=== PATIENT | female | born 1990 | race Caucasian/White ===

== ENCOUNTER 2020-03-25 16:20 | Inpatient (IN) | payer OTHER ==
[2020-03-25] MEDS ORDERED: ELECTROLYTE-148 SOLN 1,000 ML IV ONE (17:15)
[2020-03-25] MEDS ORDERED: ELECTROLYTE-148 SOLN 1,000 ML IV SCH (17:45)
[2020-03-25] MEDS ORDERED: CITRIC ACID/SODIUM CITRATE 30 ML UNIT-DOSE CUP PO ONE ×2 (18:45→19:31)
[2020-03-25 18:51] LABS: BASO % 0.1 % (0-2.0); EOS % 0.4 % (0-4.5); HEMOGLOBIN 12.8 GM/dL (10.7-15.3); LYMPH % 16.5 % (8-40); MCH 31.7 pg (25.7-33.7); MCHC 33.6 g/dl (32.0-36.0); MEAN CELL VOLUME 94.2 fl (80-96); MEAN PLT VOLUME 9.7 fl (7.5-11.1); MONO % 5.9 % (3.8-10.2); NEUT % 77.1 % (42.8-82.8); PLATELET COUNT 244 K/MM3 (134-434); RBC 4.04 M/mm3 (3.60-5.2); RDW 13.3 % (11.6-15.6); WHITE BLOOD COUNT 13.1 K/mm3 (4.0-10.0)
[2020-03-25 18:58] LABS: INR 0.93 (0.83-1.09)
[2020-03-25 19:01] LABS: ACTIVATED PTT 20.9 SECONDS (25.2-36.5)
[2020-03-25 19:16] LABS: BLOOD UREA NITROGEN 9.7 mg/dL (7-18); CREATININE 0.6 mg/dL (0.55-1.3); POTASSIUM 3.9 mmol/L (3.5-5.1)
[2020-03-25] MEDS ORDERED: ELECTROLYTE-148 SOLN 500 ML IV ONE (19:31)
--- NOTE | 2020-03-25 19:38 | HP ---
Past Medical History - Admission Chief Complaint: Contractions pain History of Present Illness: 30 yo with previous , @ 38 weeks gestation, EDC 04/06/20, admitted for repeat . Upon admission she was 1cm dilated History Source: Patient Limitations to Obtaining History: No Limitations - Past Medical History ...: 2 ...Para: 1 ...EDC by Sono: 04/06/20 - Past Surgical History Past Surgical History: Yes: Hx Myomectomy: No Hx Transabdominal Cerclage: No - Smoking History Have you smoked in the past 12 months: No - Alcohol/Substance Use Hx Alcohol Use: No History of Substance Use: reports: None - Social History Usual Living Arrangement: Yes: With Significant Other History of Recent Travel: No Home Medications - Allergies Allergies/Adverse Reactions: Allergies Allergy/AdvReac Type Severity Reaction Status Date / Time No Known Allergies Allergy Verified 03/25/20 17:46 - Home Medications Home Medications: Ambulatory Orders Iron 1 tab PO BID 02/26/20 Vitamins (Sjr) - 1 tab PO DAILY 02/26/20 Family Medical History Family History: Unremarkable Review of Systems - Review of Systems Constitutional: reports: No Symptoms HENT: reports: No Symptoms Neck: reports: No Symptoms Cardiovascular: reports: No Symptoms Respiratory: reports: No Symptoms Gastrointestinal: reports: No Symptoms Genitourinary: reports: Pain Breasts: reports: No Symptoms Reported Musculoskeletal: reports: No Symptoms Neurological: reports: No Symptoms Psychiatric: reports: No Symptoms Pain Intensity: 6 Physical Exam - Maternity Vital Signs: Vital Signs Temperature 98.2 F 03/25/20 18:00 Pulse Rate 79 03/25/20 18:00 Respiratory Rate 03/25/20 18:00 Blood Pressure 108/66 03/25/20 18:00 O2 Sat by Pulse Oximetry (%) Constitutional: Yes: Well Nourished Eyes: Yes: Conjunctiva Clear HENT: Yes: Atraumatic Neck: Yes: Supple Cardiovascular: Yes: Regular Rate and Rhythm Breast(s): Yes: WNL - Abdominal Exam/OB Number of Fetuses: Single Presentation: Vertex Intensity: Mild/Mod Monitor Mode: External Accelerations: Uniform Decelerations: None - Vaginal Exam/OB Vaginal Bleeding: No Dilatation (cm): 1 Effacement (%): 60 Amniotic Membrane Status: Intact Presentation: Vertex/Position Station: -2 - Physical Exam Musculoskeletal: Yes: WNL ...Motor Strength: WNL Psychiatric: Yes: Alert, Oriented - Labs Lab Results: CBC, BMP 03/25/20 17:15 03/25/20 17:15 Problem List - Problems (1) 38 weeks gestation of Problems reviewed: Yes Code(s): Z3A.38 - 38 WEEKS GESTATION OF Assessment/Plan 38 weeks gestation in labor Pre op for repeat Consent signed Anesthesia to see patient
[2020-03-25] MEDS ORDERED: morphine SULFATE/PF 0.5 MG/ML (2cc Syringe - QUVA) ONE (20:07)
[2020-03-25] MEDS ORDERED: MIDAZOLAM HCL 2 MG/2 ML SINGLE DOSE VIAL ONE ×2 (21:28→21:45)
[2020-03-25] MEDS ORDERED: ONDANSETRON 4 MG/2 ML VIAL IVPUSH PRN (22:13)
[2020-03-25] MEDS ORDERED: OXYTOCIN 20 UNITS in 0.9% NS 20 UNIT/1,000 ML INFUS.BAG IV ONE (22:33)
[2020-03-25] MEDS: OXYTOCIN 20 UNITS in 0.9% NS 20 UNIT/1,000 ML INFUS.BAG IV SCH (22:45)
[2020-03-25] MEDS ORDERED: IBUPROFEN 800 MG/8 ML IJ IVPB PRN (23:03)
[2020-03-25] MEDS ORDERED: METHYLERGONOVINE MALEATE 0.2 MG/1 ML AMP IM PRN (23:03)
--- NOTE | 2020-03-25 23:07 | OP ---
Operative Note - Note: Operative Date: 03/25/20 Pre-Operative Diagnosis: Previous in labor Operation: Repeat Low Transverse Findings: Baby boy in cephallic position. Multiple adhesions Post-Operative Diagnosis: Same as Pre-op Surgeon: Chela Kramer Garland Maker: Geoffrey Matute Anesthesia: Spinal Specimens Removed: Placenta Estimated Blood Loss (mls): 700
[2020-03-25 23:26] VITALS: BMI 25.8
[2020-03-26] MEDS ORDERED: OXYTOCIN 20 UNITS in 0.9% NS 20 UNIT/1,000 ML INFUS.BAG IV ONE ×2 (02:12→11:52)
[2020-03-26] MEDS: OXYTOCIN 20 UNITS in 0.9% NS 20 UNIT/1,000 ML INFUS.BAG IV SCH ×2 (02:30→12:03)
[2020-03-26 08:47] LABS: BASO % 0.2 % (0-2.0); EOS % 0.4 % (0-4.5); HEMOGLOBIN 11.9 GM/dL (10.7-15.3); LYMPH % 11.1 % (8-40); MCH 31.9 pg (25.7-33.7); MCHC 34.1 g/dl (32.0-36.0); MEAN CELL VOLUME 93.6 fl (80-96); MEAN PLT VOLUME 9.1 fl (7.5-11.1); MONO % 7.7 % (3.8-10.2); NEUT % 80.6 % (42.8-82.8); PLATELET COUNT 207 K/MM3 (134-434); RBC 3.74 M/mm3 (3.60-5.2); RDW 13.3 % (11.6-15.6); WHITE BLOOD COUNT 16.9 K/mm3 (4.0-10.0)
--- NOTE | 2020-03-26 10:55 | PN ---
Progress Note (short form) - Note Progress Note: Anesthesia Post Note: s/p c section under spinal anesthesia post op day one, intrathecal duramorph for post op pain control patient is doing well, pain under control, minimal itching, no nausea or vomiting, no adverse anesthetic complications. dept of anesthesiology will sign off on care at this time
--- NOTE | 2020-03-26 16:00 | PN ---
Post Progress Note - Subjective Subjective: 30 yo Para 2 status post repeat , seen and evaluated, doing well. Post Day: 1 Type of Delivery: Repeat C/S Vital Signs: Vital Signs Temperature 98.1 F 03/26/20 14:00 Pulse Rate 78 03/26/20 14:00 Respiratory Rate 18 03/26/20 14:00 Blood Pressure 109/71 03/26/20 14:00 O2 Sat by Pulse Oximetry (%) 100 03/26/20 10:00 Breast Exam: Yes: Soft Uterus: Yes: Fundus @ umbilicus Incision: Yes: Dressing dry and intact Abdomen/GI: Yes: Abdomen soft, Tolerating PO Lochia: Yes: Rubra Lochia, amount: Small Extremities: Yes: Calves non-tender Activity: Other (She's lying in bed) - Labs Labs: CBC WBC 16.9 K/mm3 (4.0-10.0) H 03/26/20 08:35 RBC 3.74 M/mm3 (3.60-5.2) 03/26/20 08:35 Hgb 11.9 GM/dL (10.7-15.3) 03/26/20 08:35 Hct 35.0 % (32.4-45.2) 03/26/20 08:35 MCV 93.6 fl (80-96) 03/26/20 08:35 MCH 31.9 pg (25.7-33.7) 03/26/20 08:35 MCHC 34.1 g/dl (32.0-36.0) 03/26/20 08:35 RDW 13.3 % (11.6-15.6) 03/26/20 08:35 Plt Count 207 K/MM3 (134-434) 03/26/20 08:35 MPV 9.1 fl (7.5-11.1) 03/26/20 08:35 Absolute Neuts (auto) 13.6 K/mm3 (1.5-8.0) H 03/26/20 08:35 Neutrophils % 80.6 % (42.8-82.8) 03/26/20 08:35 Lymphocytes % 11.1 % (8-40) D 03/26/20 08:35 Monocytes % 7.7 % (3.8-10.2) 03/26/20 08:35 Eosinophils % 0.4 % (0-4.5) 03/26/20 08:35 Basophils % 0.2 % (0-2.0) 03/26/20 08:35 Nucleated RBC % 0 % (0-0) 03/26/20 08:35 Problem List - Problems (1) 38 weeks gestation of Problems reviewed: Yes Code(s): Z3A.38 - 38 WEEKS GESTATION OF (2) Status post repeat low transverse section Problems reviewed: Yes Code(s): Z98.891 - HISTORY OF UTERINE SCAR FROM PREVIOUS SURGERY Assessment/Plan Status post repeat Ambulation Analgesia as needed Continue routine post op care
[2020-03-26] MEDS ORDERED: BISACODYL 10 MG SUPP.RECT RC PRN (23:03)
[2020-03-27] MEDS: oxyCODONE HCL 5 MG TABLET PO PRN ×4 (04:06→23:05)
[2020-03-27] MEDS: IBUPROFEN 600 MG TABLET (FP) PO PRN ×5 (04:07→23:05)
[2020-03-27] MEDS: SIMETHICONE 80 MG TAB.CHEW (FP) PO PRN ×2 (04:10→13:48)
--- NOTE | 2020-03-27 11:57 | PN ---
Post Progress Note - Subjective Subjective: 30 yo Para 2 status post normal vaginal delivery, seen and evaluated. Doing well. Post Day: 2 Type of Delivery: Repeat C/S Vital Signs: Vital Signs Temperature 97.5 F L 03/26/20 23:00 Pulse Rate 74 03/26/20 23:00 Respiratory Rate 20 03/27/20 06:39 Blood Pressure 106/70 03/26/20 23:00 O2 Sat by Pulse Oximetry (%) 98 03/26/20 23:00 Breast Exam: Yes: Soft Uterus: Yes: Fundus Firm Incision: Yes: Dressing dry and intact, Other (Steri strip in place) Lochia: Yes: Rubra Lochia, amount: Small Extremities: Yes: Calves non-tender Activity: Ambulating - Labs Labs: CBC WBC 16.9 K/mm3 (4.0-10.0) H 03/26/20 08:35 RBC 3.74 M/mm3 (3.60-5.2) 03/26/20 08:35 Hgb 11.9 GM/dL (10.7-15.3) 03/26/20 08:35 Hct 35.0 % (32.4-45.2) 03/26/20 08:35 MCV 93.6 fl (80-96) 03/26/20 08:35 MCH 31.9 pg (25.7-33.7) 03/26/20 08:35 MCHC 34.1 g/dl (32.0-36.0) 03/26/20 08:35 RDW 13.3 % (11.6-15.6) 03/26/20 08:35 Plt Count 207 K/MM3 (134-434) 03/26/20 08:35 MPV 9.1 fl (7.5-11.1) 03/26/20 08:35 Absolute Neuts (auto) 13.6 K/mm3 (1.5-8.0) H 03/26/20 08:35 Neutrophils % 80.6 % (42.8-82.8) 03/26/20 08:35 Lymphocytes % 11.1 % (8-40) D 03/26/20 08:35 Monocytes % 7.7 % (3.8-10.2) 03/26/20 08:35 Eosinophils % 0.4 % (0-4.5) 03/26/20 08:35 Basophils % 0.2 % (0-2.0) 03/26/20 08:35 Nucleated RBC % 0 % (0-0) 03/26/20 08:35 Problem List - Problems (1) 38 weeks gestation of Code(s): Z3A.38 - 38 WEEKS GESTATION OF (2) Status post repeat low transverse section Code(s): Z98.891 - HISTORY OF UTERINE SCAR FROM PREVIOUS SURGERY Assessment/Plan Status post repeat Ambulation Analgesia as needed Continue routine post op care
[2020-03-28 08:51] LABS: BASO % 0.2 % (0-2.0); HEMATOCRIT 35.8 % (32.4-45.2); HEMOGLOBIN 12.4 GM/dL (10.7-15.3); LYMPH % 23.1 % (8-40); MCH 32.4 pg (25.7-33.7); MCHC 34.5 g/dl (32.0-36.0); MEAN CELL VOLUME 93.8 fl (80-96); MONO % 6.9 % (3.8-10.2); NEUT % 65.8 % (42.8-82.8); PLATELET COUNT 251 K/MM3 (134-434); RBC 3.82 M/mm3 (3.60-5.2); RDW 13.2 % (11.6-15.6); WHITE BLOOD COUNT 9.8 K/mm3 (4.0-10.0)
--- NOTE | 2020-03-28 09:39 | DS ---
Physical Exam-INFRASTRUCTURE ADMINISTRATOR Vital Signs: Vital Signs Temperature 97.9 F 03/27/20 21:00 Pulse Rate 75 03/27/20 21:00 Respiratory Rate 20 03/27/20 21:00 Blood Pressure 109/63 03/27/20 21:00 O2 Sat by Pulse Oximetry (%) 97 03/27/20 21:00 Constitutional: Yes: No Distress Eyes: Yes: Conjunctiva Clear HENT: Yes: Atraumatic Neck: Yes: Supple Cardiovascular: Yes: Regular Rate and Rhythm Respiratory: Yes: Regular Gastrointestinal: Yes: Normal Bowel Sounds ...Rectal Exam: Yes: WNL Pelvis: Yes: WNL External Genitalia: Yes: Normal Vaginal Exam: Yes: Normal Cervix: Yes: Normal Uterus: Yes: Firm Wound/Incision: Yes: Well Approximated, Steri Strips (in place) Neurological: Yes: Alert, Oriented ...Motor Strength: WNL Psychiatric: Yes: Alert, Oriented Labs: CBC, BMP 03/28/20 08:28 03/25/20 17:15 Delivery - Delivery Type of Anesthesia: Spinal Episiotomy/Laceration: None EBL (cc): 700 Delivery, Single - Stages of Labor Date 1st Stage Initiatied: 03/25/20 Time 1st Stage Initiated: 15:00 Date of Delivery: 03/25/20 Time of Delivery: 21:26 Time Placenta Delivered: 21:27 - Condition of Infant Coding Support Specialist/Screenplay Writer Present: Yes Name: Chelly Jacinto Infant Gender: Male Weight: 7 lb 5 oz Total Hours ROM (Hrs/Mins): 7mins - 1 Minute Total Score: 9 5 Minutes Total Score: 9 - Bassett Feeding Plan Initial Plan: Elected not to breastfeed exclusively throughout hospitalization Discharge Summary Problems reviewed: Yes Reason For Visit: ADMIT Current Active Problems 38 weeks gestation of (Acute) Status post repeat low transverse section (Acute) Procedures: Principal: Repeat Low Transverse Hospital Course: Routine post op care Health Concerns: None Plan of Treatment: Ambulation Analgesia as needed F/U with MD in 1 week Goals: Resume regular activities in 4-6 weeks Condition: Good - Instructions Diet, Activity, Other Instructions: Regular diet No driving, no lifting x 4 weeks. F/U with MD in 1 week Disposition: HOME - Home Medications Comprehensive Discharge Medication List: Ambulatory Orders Iron 1 tab PO BID 02/26/20 Vitamins (Sjr) - 1 tab PO DAILY 02/26/20
[2020-03-28 15:03] VITALS: BP 117/63; PULSE 81; TEMP 98
--- NOTE | 2020-03-29 11:00 | OP ---
DATE OF OPERATION: 03/25/2020 PREOPERATIVE DIAGNOSIS: Previous section in labor at 38 weeks. POSTOPERATIVE DIAGNOSIS: Previous section in labor at 38 weeks. PROCEDURE: Repeat low transverse section. SURGEON: Chela Kramer MD ENROLLMENT COORDINATOR: FAUZIA Montes De Oca ANESTHESIA: Spinal. COMPLICATION: None. ESTIMATED BLOOD LOSS: 700 mL PROCEDURE: Patient was taken to the operating room where spinal anesthesia was administered. Patient was then prepped and draped in proper sterile fashion. First the old scar was removed. Then a Pfannenstiel skin incision was made and carried down to the underlying layer of fascia. The fascia was incised in the midline and extended laterally and the inferior aspect of the fascial incision was then grasped with a Grisel clamp, elevated and the rectus muscle dissected off bluntly. Attention was then turned to the superior aspect of the fascial incision which in a similar fashion was then grasped with a Grisel clamp, elevated and the rectus muscle dissected off bluntly. The rectus muscle was then in the midline, the peritoneum identified and entered sharply with the Metzenbaum scissors and the vesicouterine peritoneum was then grasped with a pickup, elevated and entered sharply with the Metzenbaum scissors. Then the lower uterine segment was incised using a 10-blade. This incision was extended laterally and a bladder flap created digitally. Then the lower uterine segment was incised and this incision was extended laterally. The head was delivered atraumatically. Nose and mouth were suctioned and the cord clamped and cut. The infant was handed to the waiting volcanology teacher. The placenta was removed manually. The uterus was exteriorized and cleared of all clots and debris, and the uterine incision was repaired using 0 Biosyn in a running locked fashion. A second layer of the same suture was used as a means to provide excellent hemostasis and the pelvis was then completely irrigated. The uterus was returned to the abdomen. Then the peritoneum was closed using 2-0 Biosyn. The fascia was reapproximated using 0 Vicryl in a running fashion and the skin was closed in a subcuticular fashion using 3-0 Vicryl. Patient tolerated the procedure well. Patient was then taken to PACU in stable condition. PATHOLOGY: Placenta. Alex FLORES/[id number]
--- NOTE | 2020-03-29 17:37 | PATH ---
Surgical Pathology Report Patient Name: FLAKO BALES Med. Rec. #: [id number] /Age/Gender: 1990 (Age: 30) / F Account: [id number] Location: [facility] OBS/DISINTEGRATOR Taken: 03/25/2020 Received: 03/26/2020 Reported: 03/29/2020 Physicians: Chela Kramer M.D. Specimen(s) Received A: PLACENTA B: OLD SCAR Clinical History , 38.2 Right salpingectomy, 02/2011 Final Diagnosis A. PLACENTA, SECTION: 462 G THIRD TRIMESTER PLACENTA WITH TRIVASCULAR UMBILICAL CORD AND UNREMARKABLE PLACENTAL MEMBRANES. B. OLD SCAR, EXCISION: DERMAL SCAR WITH KELOIDAL-TYPE COLLAGEN. SEE COMMENT. Comment: Part B, Findings are consistent with hypertrophic scar or keloid. Suggest clinical correlation. Electronically Signed Ailyn Bain M.D. Gross Description A. The specimen is received fresh labeled placenta and is a 462 gram, 20 x 15 x 1.5 cm. placenta with attached membranes and umbilical cord. The attached membranes are clear, translucent and insert marginally. The umbilical cord measures 23 cm. in length and averages 1.2 cm. in diameter. The cord inserts centrally, 6.5 cm. to the nearest margin. No true knots or strictures are identified. Cut surface of the umbilical cord reveals 3 vessels. The surface is suárez-blue with minimal fibrin deposition and appropriate caliber vessels. The maternal surface is red-brown with focal defects. Sectioning reveals red-brown, spongy parenchyma. No lesions are identified. Pbx Operator sections are submitted in three cassettes as follows: 1- membrane rolls and umbilical cord; 2-3- full thickness sections of placenta. B. Received in formalin labeled "old scar" is a keith skin ellipse measuring 14 x 1.5 cm excised to a depth of 1.5 cm. The surface of the skin shows a linear scar. Pbx Operator sections are submitted in one cassette. MLSZ/03/26/2020 sanml/03/26/2020
== END 2020-03-28 13:20 | disposition home or self-care (01) | DRG 540 ==
LOC: JERBED 16:20 → JLDR 17:48 → J3W 03-26 16:30
PROVIDERS: ADMIT Obstetrics & Gynecology; ATTEND Obstetrics & Gynecology
PROC: 10D00Z1 Extraction of Products of Conception, Low, Open Approach (ICD-10-PCS; principal; 2020-03-25)
DX: O82 Encounter for cesarean delivery without indication (principal); Z37.0 Single live birth; Z3A.38 38 weeks gestation of pregnancy; Z98.891 History of uterine scar from previous surgery; Z90.79 Acquired absence of other genital organ(s)
CPT/HCPCS: 36415; 80048; 85025; 85610; 85730; 86780; 86850; 86900; 86901; 88304-TC; 88307-TC; U0003